=== PATIENT | male | born 1960 | race Caucasian/White ===

== ENCOUNTER 2018-07-29 12:05 | Emergency (ER) | payer BC ==
--- NOTE | 2018-07-29 12:44 | ERPHSYRPT ---
- History of Present Illness Time Seen by Provider: 07/29/18 12:31 Source: patient, family Exam Limitations: no limitations Physician History: The patient is a 57-year-old male with his [id number] complaining that he has been getting worse over the last 2 days. About one week ago he was given Tamiflu for influenza. The [id number] was sick with the flu just before that. The patient has been in bed most the time since then. Over the last 2 days he has been "in and out of things". Sometimes he is glassy eyed and will not talk. In other times he will be talking. One to 2 days ago his right arm and hand were hanging down at his side. He did not want to use it. Just before coming into the ER, he was walking and fell off the porch. The brother- in-law does not think that he hurt himself falling off the porch. Patient does not complain of any pain from the fall. The patient has a cough. He hasn't eaten much over the last several days. He vomited one time. He smokes daily and drinks alcohol daily. His past medical history is significant for GERD, COPD, hypertension, and pain. Timing/Duration: week(s) (1), gradual onset, worse Severity: severe Modifying Factors: Improves With: nothing Associated Symptoms: vomiting (once), shortness of breath, cough, loss of appetite Allergies/Adverse Reactions: No Known Drug Allergies Allergy (Verified 03/11/16 21:52) Home Medications: Aspirin [Aspirin EC] 81 mg PO DAILY 03/11/16 [History] Loratadine 10 mg [Claritin 10 mg] 10 mg PO DAILY 08/09/16 [History] Multivitamin [Multivitamins] 1 each PO DAILY 08/09/16 [History] Omeprazole 20 MG [Prilosec 20 mg] 20 mg PO DAILY 09/16/17 [History] Hydrocodone Bit/Acetaminophen [Hydrocodon-Acetaminoph 7.5-325] 1 each PO TIDPRN PRN 10/13/17 [History] Naproxen 500 mg [Naprosyn 500 MG] 500 mg PO BID 12/09/17 [History] Albuterol 8 gm Mdi Hfa [Ventolin Hfa MDI] 8 gm IH Q4H 07/29/18 [History] Clonidine HCl 0.1 mg PO BID 07/29/18 [History] Fluticasone/Vilanterol [Breo Ellipta 200-25 Mcg INH] 1 each IH DAILY 07/29/18 [ History] Oseltamivir Phosphate [Tamiflu] 75 mg PO BID 07/29/18 [History] Prednisone 10 mg [Deltasone 10 mg] 1 tab PO DAILY 07/29/18 [History] Hx Tetanus, Diphtheria Vaccination/Date Given: Yes Hx Influenza Vaccination/Date Given: No Hx Pneumococcal Vaccination/Date Given: No - Review of Systems Constitutional: Malaise, Weakness Eyes: No Symptoms Ears, Nose, & Throat: No Symptoms Respiratory: Cough, Dyspnea Cardiac: No Chest Pain, No Edema, No Syncope Abdominal/Gastrointestinal: Vomiting Genitourinary Symptoms: No Dysuria Musculoskeletal: Fall Skin: No Rash Neurological: Paralysis (right arm), No Dizziness, No Focal Weakness, No Sensory Changes Psychological: No Symptoms Endocrine: No Symptoms Hematologic/Lymphatic: No Symptoms Immunological/Allergic: No Symptoms All Other Systems: Reviewed and Negative - Past Medical History Pertinent Past Medical History: Yes Neurological History: TIA ENT History: Other Cardiac History: Hypertension Respiratory History: COPD Endocrine Medical History: Diabetes Type II Musculoskeletal History: Osteoarthritis GI Medical History: Other History: No Pertinent History Psycho-Social History: Anxiety Male Reproductive Disorders: No Pertinent History Other Medical History: PT. IS A SMOKER; USES O2 AT NIGHT (2 L); PSORIASIS - Past Surgical History Past Surgical History: Yes Neuro Surgical History: No Pertinent History Cardiac: No Pertinent History Respiratory: No Pertinent History Gastrointestinal: Appendectomy Genitourinary: No Pertinent History Musculoskeletal: No Pertinent History Male Surgical History: No Pertinent History - Social History Smoking Status: Current every day smoker How long have you smoked: YRS Exposure to second hand smoke: No Drug Use: none Patient Lives Alone: No - Nursing Vital Signs Nursing Vital Signs: Initial Vital Signs Temperature 98.9 F 07/29/18 12:10 Pulse Rate 97 H 07/29/18 12:10 Respiratory Rate 24 07/29/18 12:10 Blood Pressure 133/77 07/29/18 12:10 O2 Sat by Pulse Oximetry 89 L 07/29/18 12:10 Pain Scale Pain Intensity 0 - Physical Exam General Appearance: moderate distress, thin Eye Exam: PERRL/EOMI, eyes nml inspection Ears, Nose, Throat Exam: dry mucous membranes Neck Exam: normal inspection, non-tender, supple, full range of motion Respiratory Exam: diminished breath sounds, wheezing Cardiovascular Exam: regular rate/rhythm, normal heart sounds, normal peripheral pulses Gastrointestinal/Abdomen Exam: soft, normal bowel sounds, No tenderness, No mass Rectal Exam: not done Back Exam: normal inspection Extremity Exam: limited range of motion (right arm and hand) Neurologic Exam: motor weakness (As the patient is sitting upright on the bed, he freely moves his left arm, hand, and fingers. He is able to touch his index finger of his left hand to his nose without any difficulty. His right arm and hand are hanging loosely at his side. At first when I ask him to touch his right index finger to his nose states, he cannot because of the O2 probe is connected to his finger. I removed the O2 probe. He then squeezes my fingers in his palm but less so than normal. He very slowly can move his hand to his nose and touch his right index finger to his nose. He moves his right and left lower extremities equally well.) Skin Exam: normal color, warm, dry, No rash SpO2 Interpretation: hypoxic, O2 applied Oxygen Delivery: Nasal Cannula (4L) - Course EKG Interpreted by Me: RATE, Sinus Rhythm, NORMAL AXIS, NORMAL INTERVALS, NORMAL QRS, NORMAL ST-T - CT Exams Head CT Interpretation: Tele-radiologist Report (per Dr Harris), Other (new small patchy hypoatstenuations in left anterior periventricular white matter; either old infarcts versus demyelinaing disorder; MRI might yield further information ) Chest CT Interpretation: Tele-radiologist Report (per Dr Harris), Other (diffuse bilaeal airspace disease with multifocval areas of consolidation and probable small mediastinal lymph nodes; r/o atsypical and TB/fungal infections.) Ordered Tests: Active Orders 24 hr Category Date Time Status Accucheck STAT Care 07/29/18 12:55 Active General Expeditor STAT Care 07/29/18 12:56 Active Clean Catch Urine Specimen STAT Care 07/29/18 12:55 Active EKG-ER Only STAT Care 07/29/18 12:55 Active IV Insertion STAT Care 07/29/18 12:55 Active Oxygen-ED Only NASAL CANNULA 4 lpm Care 07/29/18 12:55 Active ABDOMEN AND PELVIS W/0 CONTRAS [CT] Stat Exams 07/29/18 14:26 Completed CHEST WITHOUT CONTRAST [CT] Stat Exams 07/29/18 12:57 Completed HEAD WITHOUT CONTRAST [CT] Stat Exams 07/29/18 12:56 Completed BLOOD CULTURE Stat Lab 07/29/18 13:45 Received CBC W DIFF Stat Lab 07/29/18 12:40 Completed CMP Stat Lab 07/29/18 12:40 Completed CULTURE,URINE Stat Lab 07/29/18 15:49 Received LIPASE Stat Lab 07/29/18 14:26 Completed Lactic Acid Stat Lab 07/29/18 13:52 Completed Manual Differential NC Stat Lab 07/29/18 12:40 Completed NT PRO BNP Stat Lab 07/29/18 13:20 Completed PROTIME WITH INR Stat Lab 07/29/18 12:40 Completed TROPONIN Q3H Lab 07/29/18 13:20 Completed TROPONIN Q3H Lab 07/29/18 16:15 Completed TROPONIN Q3H Lab 07/29/18 19:00 Ordered TROPONIN Q3H Lab 07/29/18 22:00 Ordered TROPONIN Q3H Lab 07/30/18 01:00 Ordered UA W/RFX UR CULTURE Stat Lab 07/29/18 15:49 Completed Medication Summary Discontinued Medications Generic Name Dose Route Start Last Admin Trade Name Freq PRN Reason Stop Dose Admin Sodium Chloride 1,000 mls @ 999 mls/hr 07/29/18 12:55 07/29/18 14:57 Sodium Chloride 0.9% 1000 Ml IV 07/29/18 13:55 Infused .Q1H1M STA Infusion Sodium Chloride Confirm 07/29/18 13:00 Sodium Chloride 0.9% 1000 Ml Administered 07/29/18 13:01 Dose 1,000 mls @ ud .ROUTE .STK-MED ONE Ceftriaxone Sodium/Dextrose 1 g in 50 mls @ 100 mls/hr 07/29/18 16:54 17:10 Rocephin 1 Gm-D5w 50 Ml Bag IV 07/29/18 17:23 100 mls/hr STAT STA 100 mls/hr Administration Ceftriaxone Sodium/Dextrose Confirm 07/29/18 17:02 Rocephin 1 Gm-D5w 50 Ml Bag Administered 07/29/18 17:03 Dose 1 g in 50 mls @ ud IV .STK-MED ONE Lab/Rad Data: Laboratory Result Diagrams 07/29/18 12:40 07/29/18 12:40 Laboratory Results 07/29/18 07/29/18 07/29/18 Range/Units 16:15 15:49 14:26 WBC (4.0-10.5) K/mm3 RBC (4.1-5.6) M/mm3 Hgb (12.5-18.0) gm/dl Hct (42-50) % MCV (78-100) fl MCH (26-32) pg MCHC (32-36) g/dl RDW (11.5-14.0) % Plt Count (150-450) K/mm3 MPV (6-9.5) fl Segmented Neutrophils (36.-66.) % Band Neutrophils (0.0-2.0) % Lymphocytes (Manual) (24-44) % Monocytes (Manual) (0.0-12.0) % Toxic Granulation Platelet Estimate (NORMAL) RBC Morphology PT (8.83-12.87) SECONDS INR (0.8-3.0) Sodium (137-145) mmol/L Potassium (3.5-5.1) mmol/L Chloride (98-107) mmol/L Carbon Dioxide (22-30) mmol/L Anion Gap (5-15) MEQ/L BUN (9-20) mg/dL Creatinine (0.66-1.25) mg/dL Estimated GFR ML/MIN Glucose (74-106) mg/dL Lactic Acid (0.4-2.0) Calcium (8.4-10.2) mg/dL Total Bilirubin (0.2-1.3) mg/dL AST (17-59) U/L ALT (0-50) U/L Alkaline Phosphatase (38-126) U/L Troponin I < 0.012 (0.000-0.034) ng/mL NT-Pro-B Natriuret Pep (0-900) pg/mL Serum Total Protein (6.3-8.2) g/dL Albumin (3.5-5.0) g/dL Lipase 25 (23-300) U/L Urine Color DEBBIE (YELLOW) Urine Appearance CLOUDY (CLEAR) Urine pH 5.0 (5-6) Ur Specific [place] 1.021 (1.005-1.025) Urine Protein 100 (Negative) Urine Ketones NEGATIVE (NEGATIVE) Urine Blood SMALL (0-5) Elliott/ul Urine Nitrite NEGATIVE (NEGATIVE) Urine Bilirubin NEGATIVE (NEGATIVE) Urine Urobilinogen 4 (0-1) mg/dL Ur Leukocyte Esterase NEGATIVE (NEGATIVE) Urine WBC (Auto) 3-5 (0-5) /HPF Urine RBC (Auto) 3-5 (0-2) /HPF U Hyaline Cast (Auto) 6-10 (0-2) /LPF U Epithel Cells (Auto) NONE (FEW) /HPF Urine Bacteria (Auto) RARE (NEGATIVE) /HPF Urine Mucus (Auto) SLIGHT (NEGATIVE) /HPF Urine Culture Reflexed YES (NO) Urine Glucose NEGATIVE (NEGATIVE) mg/dL Influenza Type A Ag (NEGATIVE) Influenza Type B Ag (NEGATIVE) RSV (PCR) (Negative) 07/29/18 07/29/18 07/29/18 Range/Units 13:52 13:20 13:20 WBC (4.0-10.5) K/mm3 RBC (4.1-5.6) M/mm3 Hgb (12.5-18.0) gm/dl Hct (42-50) % MCV (78-100) fl MCH (26-32) pg MCHC (32-36) g/dl RDW (11.5-14.0) % Plt Count (150-450) K/mm3 MPV (6-9.5) fl Segmented Neutrophils (36.-66.) % Band Neutrophils (0.0-2.0) % Lymphocytes (Manual) (24-44) % Monocytes (Manual) (0.0-12.0) % Toxic Granulation Platelet Estimate (NORMAL) RBC Morphology PT (8.83-12.87) SECONDS INR (0.8-3.0) Sodium (137-145) mmol/L Potassium (3.5-5.1) mmol/L Chloride (98-107) mmol/L Carbon Dioxide (22-30) mmol/L Anion Gap (5-15) MEQ/L BUN (9-20) mg/dL Creatinine (0.66-1.25) mg/dL Estimated GFR ML/MIN Glucose (74-106) mg/dL Lactic Acid 2.1 H (0.4-2.0) Calcium (8.4-10.2) mg/dL Total Bilirubin (0.2-1.3) mg/dL AST (17-59) U/L ALT (0-50) U/L Alkaline Phosphatase (38-126) U/L Troponin I < 0.012 (0.000-0.034) ng/mL NT-Pro-B Natriuret Pep (0-900) pg/mL Serum Total Protein (6.3-8.2) g/dL Albumin (3.5-5.0) g/dL Lipase (23-300) U/L Urine Color (YELLOW) Urine Appearance (CLEAR) Urine pH (5-6) Ur Specific [place] (1.005-1.025) Urine Protein (Negative) Urine Ketones (NEGATIVE) Urine Blood (0-5) Elliott/ul Urine Nitrite (NEGATIVE) Urine Bilirubin (NEGATIVE) Urine Urobilinogen (0-1) mg/dL Ur Leukocyte Esterase (NEGATIVE) Urine WBC (Auto) (0-5) /HPF Urine RBC (Auto) (0-2) /HPF U Hyaline Cast (Auto) (0-2) /LPF U Epithel Cells (Auto) (FEW) /HPF Urine Bacteria (Auto) (NEGATIVE) /HPF Urine Mucus (Auto) (NEGATIVE) /HPF Urine Culture Reflexed (NO) Urine Glucose (NEGATIVE) mg/dL Influenza Type A Ag POSITIVE (NEGATIVE) Influenza Type B Ag NEGATIVE (NEGATIVE) RSV (PCR) NEGATIVE (Negative) 07/29/18 07/29/18 07/29/18 Range/Units 13:20 12:40 12:40 WBC (4.0-10.5) K/mm3 RBC (4.1-5.6) M/mm3 Hgb (12.5-18.0) gm/dl Hct (42-50) % MCV (78-100) fl MCH (26-32) pg MCHC (32-36) g/dl RDW (11.5-14.0) % Plt Count (150-450) K/mm3 MPV (6-9.5) fl Segmented Neutrophils (36.-66.) % Band Neutrophils (0.0-2.0) % Lymphocytes (Manual) (24-44) % Monocytes (Manual) (0.0-12.0) % Toxic Granulation Platelet Estimate (NORMAL) RBC Morphology PT 17.4 H (8.83-12.87) SECONDS INR 1.49 (0.8-3.0) Sodium 137 (137-145) mmol/L Potassium 3.9 (3.5-5.1) mmol/L Chloride 92 L (98-107) mmol/L Carbon Dioxide 31 H (22-30) mmol/L Anion Gap 17.7 H (5-15) MEQ/L BUN 37 H (9-20) mg/dL Creatinine 1.47 H (0.66-1.25) mg/dL Estimated GFR 52.7 ML/MIN Glucose 146 H (74-106) mg/dL Lactic Acid (0.4-2.0) Calcium 9.3 (8.4-10.2) mg/dL Total Bilirubin 1.40 H (0.2-1.3) mg/dL AST 64 H (17-59) U/L ALT 37 (0-50) U/L Alkaline Phosphatase 136 H (38-126) U/L Troponin I (0.000-0.034) ng/mL NT-Pro-B Natriuret Pep 1800 H (0-900) pg/mL Serum Total Protein 7.8 (6.3-8.2) g/dL Albumin 3.6 (3.5-5.0) g/dL Lipase (23-300) U/L Urine Color (YELLOW) Urine Appearance (CLEAR) Urine pH (5-6) Ur Specific [place] (1.005-1.025) Urine Protein (Negative) Urine Ketones (NEGATIVE) Urine Blood (0-5) Elliott/ul Urine Nitrite (NEGATIVE) Urine Bilirubin (NEGATIVE) Urine Urobilinogen (0-1) mg/dL Ur Leukocyte Esterase (NEGATIVE) Urine WBC (Auto) (0-5) /HPF Urine RBC (Auto) (0-2) /HPF U Hyaline Cast (Auto) (0-2) /LPF U Epithel Cells (Auto) (FEW) /HPF Urine Bacteria (Auto) (NEGATIVE) /HPF Urine Mucus (Auto) (NEGATIVE) /HPF Urine Culture Reflexed (NO) Urine Glucose (NEGATIVE) mg/dL Influenza Type A Ag (NEGATIVE) Influenza Type B Ag (NEGATIVE) RSV (PCR) (Negative) 07/29/18 Range/Units 12:40 WBC 17.6 H (4.0-10.5) K/mm3 RBC 4.19 (4.1-5.6) M/mm3 Hgb 12.8 (12.5-18.0) gm/dl Hct 39.6 L (42-50) % MCV 94.5 (78-100) fl MCH 30.5 (26-32) pg MCHC 32.3 (32-36) g/dl RDW 13.3 (11.5-14.0) % Plt Count 325 (150-450) K/mm3 MPV 11.9 H (6-9.5) fl Segmented Neutrophils 87 H (36.-66.) % Band Neutrophils 3 H (0.0-2.0) % Lymphocytes (Manual) 5 L (24-44) % Monocytes (Manual) 5 (0.0-12.0) % Toxic Granulation 2+ Platelet Estimate NORMAL (NORMAL) RBC Morphology NORMAL PT (8.83-12.87) SECONDS INR (0.8-3.0) Sodium (137-145) mmol/L Potassium (3.5-5.1) mmol/L Chloride (98-107) mmol/L Carbon Dioxide (22-30) mmol/L Anion Gap (5-15) MEQ/L BUN (9-20) mg/dL Creatinine (0.66-1.25) mg/dL Estimated GFR ML/MIN Glucose (74-106) mg/dL Lactic Acid (0.4-2.0) Calcium (8.4-10.2) mg/dL Total Bilirubin (0.2-1.3) mg/dL AST (17-59) U/L ALT (0-50) U/L Alkaline Phosphatase (38-126) U/L Troponin I (0.000-0.034) ng/mL NT-Pro-B Natriuret Pep (0-900) pg/mL Serum Total Protein (6.3-8.2) g/dL Albumin (3.5-5.0) g/dL Lipase (23-300) U/L Urine Color (YELLOW) Urine Appearance (CLEAR) Urine pH (5-6) Ur Specific [place] (1.005-1.025) Urine Protein (Negative) Urine Ketones (NEGATIVE) Urine Blood (0-5) Elliott/ul Urine Nitrite (NEGATIVE) Urine Bilirubin (NEGATIVE) Urine Urobilinogen (0-1) mg/dL Ur Leukocyte Esterase (NEGATIVE) Urine WBC (Auto) (0-5) /HPF Urine RBC (Auto) (0-2) /HPF U Hyaline Cast (Auto) (0-2) /LPF U Epithel Cells (Auto) (FEW) /HPF Urine Bacteria (Auto) (NEGATIVE) /HPF Urine Mucus (Auto) (NEGATIVE) /HPF Urine Culture Reflexed (NO) Urine Glucose (NEGATIVE) mg/dL Influenza Type A Ag (NEGATIVE) Influenza Type B Ag (NEGATIVE) RSV (PCR) (Negative) - Progress Progress: unchanged Progress Note: 07/29/18 16:[address] Mcneil who declines pt and wants [facility]. Discussed with : Tarun Counseled pt/family regarding: lab results, diagnosis, rad results - Departure Time of Disposition: 17:06 Departure Disposition: Transfer (transfer to [facility]) Clinical Impression: Pneumonia and influenza, Right arm weakness, Demyelinating changes in brain Condition: Stable Critical Care Time: No Referrals: SAIGE DAI [Primary Care Provider] -
[2018-07-29] MEDS ORDERED: Sodium Chloride 0.9% 1000 ML 1,000 ML IV STA (12:55)
[2018-07-29] MEDS ORDERED: Sodium Chloride 0.9% 1000 ML 1,000 ML ONE (13:00)
--- NOTE | 2018-07-29 13:48 | XRAY ---
Indication: Right arm weakness. Multiple contiguous axial images obtained through the head without contrast. Comparison: March 11, 2016. Age-appropriate global atrophy. New small patchy hypoattenuations in the left anterior periventricular white matter without mass effect/midline shifting either old infarcts versus demyelinating disorder from degenerative micro-ischemia or multiple sclerosis. No acute intracranial hemorrhage, abnormal extra-axial fluid collection, or hydrocephalus. Hart-white matter differentiation maintained. Fourth ventricle is midline. Bony calvarium intact. New small fluid leveling in both maxillary sinuses. Mastoid air cells are clear. Impression: 1. New small patchy hypoattenuations in the left anterior periventricular white matter possibly from old infarcts versus demyelinating disorder such as degenerative micro-ischemia or multiple sclerosis. MRI may yield further information if clinically warranted. 2. Incidental bilateral maxillary sinus disease. CT DI 70.48
[2018-07-29 13:55] LABS: Red Blood Count 4.19 M/mm3 (4.1-5.6); White Blood Count 17.6 K/mm3 (4.0-10.5)
[2018-07-29 13:55] LABS: Lactic Acid 2.1 (0.4-2.0)
[2018-07-29 13:56] LABS: Hematocrit 39.6 % (42-50); Hemoglobin 12.8 gm/dl (12.5-18.0); Mean Cell Volume 94.5 fl (78-100); Mean Corpuscular Hemoglobin 30.5 pg (26-32); Mean Corpuscular Hgb Concent. 32.3 g/dl (32-36); Mean Platelet Volume 11.9 fl (6-9.5); Platelet Count 325 K/mm3 (150-450); Red Cell Distribution Width 13.3 % (11.5-14.0)
[2018-07-29 14:06] LABS: ALBUMIN 3.6 g/dL (3.5-5.0); ANION GAP 17.7 MEQ/L (5-15); BILIRUBIN,TOTAL 1.4 mg/dL (0.2-1.3); Calcium 9.3 mg/dL (8.4-10.2); Creatinine 1 1.47 mg/dL (0.66-1.25); Potassium 3.9 mmol/L (3.5-5.1); Total Protein 7.8 g/dL (6.3-8.2)
--- NOTE | 2018-07-29 14:09 | XRAY ---
Indication: Cough. Multiple contiguous axial images obtained through the chest without contrast. Comparison: None Diffuse bilateral airspace opacities with multifocal areas of consolidation greatest in the right upper lobe. No suspicious pulmonary mass, cavities, or effusion. Heart is not enlarged. Aorta is normal in course and caliber. Multiple small mediastinal lymph nodes, largest subcarinal measuring 1.4 x 2.0 cm presumed reactive. No pathologic axillary lymphadenopathy. Bony thorax intact with mild degenerative changes throughout the spine. Limited upper abdomen unremarkable. Impression: Diffuse bilateral airspace disease with multifocal areas of consolidation and probable reactive small mediastinal lymph nodes. Rule out atypical and TB/fungal infections. CT DI 17.76
[2018-07-29 14:16] LABS: INR 1.49 (0.8-3.0)
[2018-07-29 14:47] LABS: INFLUENZA B NEGATIVE (NEGATIVE); RESPIRATORY SYNCTIAL VIRUS NEGATIVE (Negative)
[2018-07-29 14:48] LABS: INFLUENZA A POSITIVE (NEGATIVE)
[2018-07-29 15:34] LABS: BAND 3 % (0.0-2.0); Lymphocytes 5 % (24-44); Monocyte 5 % (0.0-12.0); Neutrophils 87 % (36.-66.); Total Cells Counted 100; Toxic Granulation 2+
[2018-07-29 15:35] LABS: Platelet Estimate NORMAL (NORMAL)
--- NOTE | 2018-07-29 16:26 | XRAY ---
Indication: Vomiting. Elevated WBC. Multiple contiguous axial images obtained through the abdomen and pelvis without contrast as ordered. Comparison: None Study slightly degraded by respiration artifact throughout. Lung bases demonstrates incompletely visualized right lower lobe air space opacities with medial consolidation. No effusion. Heart is not enlarged. Noncontrasted stomach and bowel loops appear nonobstructed. Appendix not seen. No free fluid/air. Urinary bladder normally distended with mild circumferential wall thickening, possibly from incomplete distention versus cystitis. Enlarged prostate gland with benign-appearing chunky calcifications. Calcified splenic granulomas. Remaining liver, gallbladder, pancreas, spleen, adrenal glands, kidneys, ureters, bladder, and aorta appear unremarkable for noncontrast exam. Osseous structures intact with mild degenerative changes throughout the spine including 4 mm L4 anterolisthesis. No ventral or inguinal hernias. Impression: 1. Limited exam due to respiration artifact. 2. Incompletely visualized right lower lobe airspace disease. Rule out aspiration pneumonia given clinical presentation. 3. Mild urinary bladder wall thickening, incomplete distention versus cystitis. Correlate clinically. 4. Enlarged prostate gland with benign calcifications, multilevel degenerative spondylosis including minimal grade 1 L4 spondylolisthesis, and evidence for old granulomatous disease. CTDI 21.15
[2018-07-29] MEDS ORDERED: ROCEPHIN 1 Gm-D5w 50 ml Bag** 1 G/50 ML IVPB IV STA (16:54)
[2018-07-29 17:02] LABS: Appearance CLOUDY (CLEAR); Bilirubin NEGATIVE (NEGATIVE); Blood SMALL Ery/ul (0-5); Glucose NEGATIVE (NEGATIVE); Ketones NEGATIVE (NEGATIVE); Leukocyte Esterase NEGATIVE (NEGATIVE); Nitrite NEGATIVE (NEGATIVE); Protein,Urine Dip 100 (Negative); Specific Gravity 1.021 (1.005-1.025); Urobilinogen 4 mg/dL (0-1)
[2018-07-29] MEDS ORDERED: ROCEPHIN 1 Gm-D5w 50 ml Bag** 1 G/50 ML IVPB IV ONE (17:02)
[2018-07-29 17:15] VITALS: BP 126/87; PULSE 103; O2SAT 93
== END 2018-07-29 18:16 | disposition short-term general hospital (02) ==
LOC: ED 12:05
DX: J18.9 Pneumonia, unspecified organism (principal); J11.1 Influenza due to unidentified influenza virus with other respiratory manifestations; R53.1 Weakness; R53.81 Other malaise; G37.9 Demyelinating disease of central nervous system, unspecified; Z79.82 Long term (current) use of aspirin; Z79.899 Other long term (current) drug therapy; W17.89XA Other fall from one level to another, initial encounter; F17.200 Nicotine dependence, unspecified, uncomplicated
CPT/HCPCS: 36000; 36415; 70450; 71250; 74176; 80053; 81001; 82962; 83605; 83690; 83880; 84484; 85025; 85610; 87040; 87086; 87631; 93005; 93041; 96360; 96365; 96374; 99285; J0696

== ENCOUNTER 2019-03-15 09:23 | Day surgery (SDC) | payer BC ==
--- NOTE | 2019-03-15 08:33 | HP ---
DATE OF SURGERY: 03/15/2019 HISTORY OF PRESENT ILLNESS: The patient is a 58 year-old with last colonoscopy six years ago. He had some problems with occult blood. No visibly gross bloody stools. No change in bowel movements. No pain. He has some history of hypertension in the past, chronic lung disease, hypercholesterolemia. He had a stroke in the past. He has family history of an aunt with colon cancer. He is in need of follow up colonoscopy. PAST MEDICAL HISTORY: PAST SURGICAL HISTORY: Tonsillectomy. Carotid artery surgery in the past. Appendectomy in the past. MEDICATIONS: Atorvastatin, clonidine, clopidogrel, hydrocodone, magnesium, omeprazole, Tamsulosin. ALLERGIES: NKDA. FAMILY HISTORY: Heart disease, stroke, diabetes, hypertension, renal disease. SOCIAL HISTORY: No smoking or alcohol abuse. REVIEW OF SYSTEMS: Fourteen systems reviewed pertinent for multiple medical problems as noted above. No chest pain or palpitations. PHYSICAL EXAMINATION: GENERAL: No acute distress. HEENT: Sclerae nonicteric. NECK: No JVD. CHEST: Equal excursion, nonlabored breathing. CVS: Regular rate and rhythm. ABDOMEN: Soft. No peritoneal signs. EXTREMITIES: No significant edema. NEURO: Alert, oriented, moving extremities symmetrically. No gross motor deficits noted. RECTAL: Deferred timed to endoscopy exam. IMPRESSION: Family history of colon cancer, question of occult blood in the stool, last colonoscopy six years or more ago. He is in need of follow up colonoscopy for further evaluation. He was shown the risk sheet and explained the procedure in detail but not limited to bleeding or infection, risk of bowel injury or perforation possibly requiring open procedure, risk of missed or nondiagnosis or incomplete exam possibly requiring barium enema, other studies or procedures, general risk of anesthesia or sedation but not limited to. He understands and agrees to the planned procedure, will proceed with outpatient follow up colonoscopy.
[~2019-03-15 09:23] MED LIST: Lactated Ringers 1,000 ML IV ONE; Lactated Ringers 1,000 ML IV SCH
[2019-03-15] MEDS ORDERED: DIPRIVAN 200 MG/20 ML IV ONE ×2 (10:57→11:16)
[2019-03-15] MEDS ORDERED: Ketamine HCl 50 MG/ML ONE (10:58)
[2019-03-15] MEDS ORDERED: Lactated Ringers 1,000 ML IV ONE (11:38)
[2019-03-15 12:37] VITALS: O2SAT 98
[2019-03-15 12:39] VITALS: BP 125/88; PULSE 58
--- NOTE | 2019-03-16 07:55 | OP ---
SURGERY DATE/TIME: 03/15/2019 1058 PREOPERATIVE DIAGNOSIS: Family history of colon cancer. POSTOPERATIVE DIAGNOSES: 1) Small polyp transverse colon. 2) Small raised lesion versus hyperplastic lesion rectosigmoid. 3) Diverticulosis. 4) Adequate prep. 5) Small internal and external hemorrhoids. PROCEDURES: 1) Colonoscopy to cecum. 2) Hot biopsy polypectomy removal of transverse colon small polyp. 3) Hot biopsy removal of small raised lesion versus hyperplastic lesion rectosigmoid area. SURGEON: Dr. Tristen Watson. ANESTHESIA: MAC. ESTIMATED BLOOD LOSS: Minimal. INDICATIONS: As noted above. Risks and benefits explained in detail but not limited to and consent obtained. DESCRIPTION OF PROCEDURE AND FINDINGS: The patient is taken to the operating room. MAC anesthesia introduced. After official time out and no disagreement with planned procedure, digital rectal exam did not reveal any rectal masses. He did have some internal and external hemorrhoids. Video colonoscope inserted and passed up through the tortuous sigmoid, descending, transverse and ascending colon around to the cecum. Appendiceal orifice and valve visualized. He did have a fair amount of semisolid liquidy stool throughout the colon this was suction irrigated as clear as possible. Overall adequate prep. Did not reveal any large lesion or mass but tiny polyps may not be able to see as well with this prep quality. The scope is slowly and carefully withdrawn over the next ten minutes. There were no signs of any large polyps, masses or obstructing lesions but he did have a small 2.5 mm polyp that was removed with hot biopsy forceps in the transverse colon. Elevating well away from the bowel wall with brief bursts of cautery. Good hemostasis noted. The scope is slowly and carefully withdrawn. He did have some diverticulosis. He had small raised lesion rectosigmoid area removed with hot biopsy forceps with brief bursts of cautery. Good hemostasis noted. Otherwise he had some internal and external hemorrhoids. There were no signs of any large polyps, masses or obstructing lesions. The scope is withdrawn. The patient tolerated the procedure well. He likely would benefit from follow up colonoscopy if the path is benign in three years given the polyp in the transverse colon. Final recommendations pending final path.
== END 2019-03-15 12:32 | disposition home or self-care (01) ==
LOC: SDC 09:23
PROVIDERS: ATTEND Surgery
DX: Z09 Encounter for follow-up examination after completed treatment for conditions other than malignant neoplasm (principal); Z80.0 Family history of malignant neoplasm of digestive organs; K63.5 Polyp of colon; D12.8 Benign neoplasm of rectum; K57.30 Diverticulosis of large intestine without perforation or abscess without bleeding; K64.4 Residual hemorrhoidal skin tags; K64.8 Other hemorrhoids
CPT/HCPCS: 88305; J2704

== ENCOUNTER 2025-05-17 18:59 | Emergency (ER) | payer MEDICARE ==
[2025-05-17 19:39] VITALS: BP 0/0; PULSE 0; RESP 0; O2SAT 0
--- NOTE | 2025-05-17 20:01 | ERPHSYRPT ---
- History of Present Illness Time Seen by Provider: 05/17/25 19:56 Source: patient Exam Limitations: no limitations Patient Subjective Stated Complaint: PT WAS UNRESPONSIVE IN ACTIVE CARDIAC ARREST UPON ARRIVAL. PER EMS "PT WAS PASSENGER IN VEHICLE AND STOPPED ON THE SIDE OF THE ROAD TO PEE AND COLLAPSED INTO CARDIAC ARREST". Triage Nursing Assessment: Per dayshift RN report, pt arrived in cardiac arrest w/ CPR in progress per EMS to our ER at 1840. EMS replayed they inserted an IO into L tibula, administered 4 epis, 1 amp bicarb, ventilated w/ BVM and performed CPR for approx 30 minutes prior to arrival to hospital. EMS Crew SCAT 4 were first responders and SCAT 1 intercepted w/ BLS SCAT 4 and resumed the care of the pt. EMS reported the pt did not have a pulse for the duration of their care. Pt was in asystole/PEA and no shocks were delivered. Per Dayshift RNs, CPR was resumed by ER staff via manual CPR. The completed 5 rounds of CPR in ER, administered 4 epis, started a secondary IV in R AC 20g. Pt arrived cynanotic and mottled with pupils fixed, w/ no pulse noted. Pt had noted abrasion to right knee and right hand from the fall he had when he collapsed [employer]. No active bleeding. During CPR, Dayshift RNs report that pt remained in asystole and PEA with no femoral or radial pulse. Pt was ventilated via BVM. TOD called at 1855 - family was taken to bedside. See paper charting for CPR flowsheet, medication times, reassessments, and interventions. Physician History: Patient is a 64-year-old male history of hypertension hyperlipidemia COPD presents to our ED in cardiac arrest. Per patient had just left his primary care doctor office after a routine visit. They were driving home. Patient got the urge to urinate. They stopped off on the side of the road to urinate. states that patient collapsed as he was walking back from urinating. 911 was called. Patient had been down for about 10 minutes. Upon EMS arrival CPR was initiated. CPR had been in progress for approximately 30 minutes prior to arrival. Upon arrival total downtime was 40 minutes. Patient received a supraglottic glottic airway and route. Patient had been without a perfusing rhythm for over 40 minutes. He received 4 rounds of epi and bicarb and route. No amiodarone. A left IO was placed by EMS. Patient had a end- tidal of 40 upon arrival PEA. CPR was resumed. We ran CPR for 4 rounds of epi. Patient's arrived. We quickly advised her of the progress and the potential outcome. She was given the option to observed patient prior to calling CPR. She chose to see him prior to stopping CPR. Patient was pronounced in the presence of his at 1855. Glucose 278 Portions of this note were created with voice recognition technology. There may be grammatical, spelling, punctuation or sound alike errors Timing/Duration: today Severity: severe Allergies/Adverse Reactions: No Known Drug Allergies Allergy (Verified 03/15/19 09:52) Home Medications: Albuterol Sulfate [Ventolin Hfa] 18 gm [facility] 03/09/19 [History] Atorvastatin Calcium [Lipitor 20MG Tablet] 20 mg PO DAILY 03/09/19 [History] Clonidine HCl 0.1 mg [Clonidine 0.1 mg Tablet] 0.1 mg PO BID 03/09/19 [History] Docusate Sodium 100 mg [Docusate Sodium 100 MG] 100 mg PO BID 03/09/19 [History] Hydrocodone/Acetaminophen [Hydrocodon-Acetaminoph 7.5-325] 1 each PO TID 03/09/19 [History] Hydroxyzine HCl 25 mg [Atarax 25 mg] 25 mg PO TID 03/09/19 [History] Ipratropium/Albuterol Sulfate [Iprat-Albut 0.5-3(2.5) mg/3 ml] 3 ml [facility] 03/09/19 [History] Loratadine 10 mg [Claritin 10 mg] 10 mg PO DAILY 03/09/19 [History] Magnesium Oxide [Magnesium] 400 mg PO BID 03/09/19 [History] Nitroglycerin 0.4 mg (Ed) [Nitrostat 0.4 MG (ED)] 0.4 mg SL STAT 03/09/19 [History] Omeprazole 20 mg PO DAILY 03/09/19 [History] Tamsulosin HCl 0.4 mg [Flomax 0.4 MG] 0.4 mg PO DAILY 03/09/19 [History] Thiamine HCl 100 mg [Vitamin B-1 100 mg] 100 mg PO DAILY 03/09/19 [History] Hx Tetanus, Diphtheria Vaccination/Date Given: (UNKNOWN) Hx Influenza Vaccination/Date Given: (UNKNOWN) Hx Pneumococcal Vaccination/Date Given: (UNKNOWN) Immunizations Up to Date: (UNKNOWN) Travel Risk - International Travel Have you traveled outside of the country in past 3 weeks: No (unknown) - Emerging Infectious Disease Are you exhibiting symptoms associated with any current EIDs: No (unknown) - Review of Systems All Other Systems: Unable due to condition - Past Medical History Pertinent Past Medical History: Yes Neurological History: Stroke ENT History: Other Cardiac History: High Cholesterol, Hypertension Respiratory History: COPD Endocrine Medical History: No Pertinent History Musculoskeletal History: Degenerative Disk Disease, Osteoarthritis GI Medical History: Other History: No Pertinent History Psycho-Social History: Anxiety Male Reproductive Disorders: No Pertinent History Other Medical History: PATIENT REPORTS HX OF CHRONIC BACK PAIN - 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 - Past Surgical History Past Surgical History: Yes Neuro Surgical History: No Pertinent History Cardiac: No Pertinent History Respiratory: No Pertinent History Gastrointestinal: Appendectomy Genitourinary: No Pertinent History Musculoskeletal: No Pertinent History Male Surgical History: No Pertinent History - Social History Smoking Status: Unknown if ever smoked Exposure to second hand smoke: (UNKNOWN) - Social Determinants of Health Will the patient participate in the screening: Unable to obtain - Nursing Vital Signs Nursing Vital Signs: Initial Vital Signs Pulse Rate 0 L 05/17/25 19:00 Respiratory Rate 0 L 05/17/25 19:00 Blood Pressure 0/0 05/17/25 19:00 O2 Sat by Pulse Oximetry 0 L 05/17/25 19:00 Pain Scale Pain Intensity 0 - Physical Exam General Appearance: no apparent distress, alert Ears, Nose, Throat Exam: normal ENT inspection, moist mucous membranes, other (For glottic airway in place. Patient oxygenated and ventilated via BVM) Neck Exam: normal inspection, supple Respiratory Exam: other (Patient with supraglottic airway ventilated oxygenated with BVM), No respiratory distress Cardiovascular Exam: other (Patient in cardiac arrest) Gastrointestinal/Abdomen Exam: soft Neurologic Exam: other, No motor deficits Skin Exam: warm, cyanosis, mottled, other, No rash Lymphatic Exam: adenopathy SpO2: 0 O2 Delivery: Ambu-Bag - Course Nursing assessment & vital signs reviewed: Yes Ordered Tests: Active Orders 24 hr Category Date Time Status Standby STAT RT 05/17/25 18:40 Active - Progress Progress: improved Progress Note: Patient is a 64-year-old male history of hypertension hyperlipidemia COPD presents to our ED in cardiac arrest. Patient oxygenated and ventilated via supraglottic airway and BVM. Patient's downtime upon arrival was 40 minutes. However end-tidal was 40. Patient was in PEA. CPR continued. Physical exam patient was unresponsive. Pupils fixed dilated no corneal reflex. Patient was intubated on the scene without RSI medication. History obtained from EMS and . Diagnoses include cardiac arrest, PE, hypovolemic, hypoxia, hypoglycemia Patient at 1855 with family at the bedside. Reviewed and analyzed is none. No specialized testing ordered. Diagnosis made based on history and physical exam. Risk of complication at risk of morbidity/mortality of patient management is high. Critical care time is 15 minutes. Complexity of data reviewed and analyzed none. No specialized testing ordered. Diagnosis made based on history and physical exam. Risk of complication and or risk of morbidity/mortality of patient management is high. Patient . Was an extremis arrival. ACLS continued for approximately 15 minutes before patient was pronounced. Portions of this note were created with voice recognition technology. There may be grammatical, spelling, punctuation or sound alike errors 05/17/25 20:43 Will see patient in: other - Departure Departure Disposition: Clinical Impression: Cardiac arrest, Neurovascular collapse Condition: Stable Critical Care Time: No Referrals: VALERIE WARREN MD [Primary Care Provider, [facility]] - Follow up/PCP as directed
== END 2025-05-17 21:20 | disposition expired ==
LOC: ED 18:59
DX: I46.9 Cardiac arrest, cause unspecified (principal)